=== PATIENT | male | born 1965 ===

== ENCOUNTER 2021-07-20 15:24 | Emergency (ER) | payer OTHER, SELFPAY ==
[2021-07-20 15:26] VITALS: BP 127/31; PULSE 60; RESP 20; TEMP 36.6; O2SAT 98
--- NOTE | 2021-07-20 17:02 | PC.NURSE ---
patient left without being seen
== END 2021-07-20 17:19 | disposition left against medical advice (07) ==
LOC: ANHED 17:15
PROVIDERS: PCP Family Medicine
DX: M79.604 Pain in right leg (principal)
CPT/HCPCS: 99199